=== PATIENT | female | born 1965 | race Caucasian/White ===

== ENCOUNTER 2025-02-21 10:11 | Emergency (ER) | payer OTHER ==
[~2025-02-21] VITALS: Ht 170.2 cm; Wt 58.0 kg
--- NOTE | 2025-02-21 10:39 | Physician Documentation ---
History of Present Illness ~ Chief Complaint: ALOC Stated Complaint: ALTERED Time Seen by MD: 10:24 [facility] 59-year-old female from [place] presents with ALOC complaint. According to her they have been hiking on the [place] [employer] trail since October. states that in the last three days patient has had a cough and has a stopped speaking or responding verbally. She has also had an elevated temperature over 101f according to the . She has had ongoing diarrhea. He has a attempted to provide her nourishment, but he believes has been not very substantial. In addition, the patient reportedly fell yesterday causing an abrasion on her right brow. No history of blood thinners. Patient does not take any prescribed medications. Patient had breast cancer two years ago Patient is currently following commands. Her mucous membranes are very dry. Currently requiring 3 L of oxygen to maintain a 91%. states she never reported any pain, but reported feeling tired the last week or so Day of Onset: Feb 21, 2025 Medication Reconciliation Allergies: Coded Allergies: No Known Allergies (Unverified , 02/21/25) Review of Systems All Other Systems at this time: Reviewed and Negative ROS As stated above in the HPI, otherwise all systems are reviewed and negative. Physical Exam Vital Signs: Temperature: 98.7, Source: Oral, Heart Rate: 124, Respiratory Rate: 16, BP: 105/59, Pulse Oximetry: 87 Physical Exam General: Alert, no apparent distress. HEENT: PERRL, EOMI, no injection, abrasions right brow Respiratory:diminshed right lung feild, Chest: No accessory muscle use. Cardiovascular: Regular rate and rhythm, no murmurs. Extremities: Normal range of motion, no deformity. Neurologic: Oriented x2. follows commmands , smiles appropriately Psychiatric: Normal mood and affect. Skin: Normal color, warm and dry. No edema, no ecchymosis., no petechia Procedures Procedures Central line: Patient is hypotensive and requires multiple medications therefore central line indicated. Patient was sterilely cleaned and draped and using maximum barrier protection and bedside ultrasound for guidance using modified Seldinger technique a for lumen central line catheter was placed in patient's right internal jugular. All four lines flushed. Postprocedure chest x-ray confirms placement. Line secured in place with sutures and Tegaderm and Biopatch placed. Patient tolerated procedure well without complication. Total time of procedure 20 minutes. Progress Progress Note @ 1600,Patient began to decompensate with increasing respiratory distress, saturating in the low 80s with labored respirations. I suspect this was due to the of 3 L of normal saline that she received secondary to a sepsis diagnosis. I have requested RT to place BiPAP and gave the patient a 40 of Lasix along with Solu-Medrol. She quickly turned around as she was not originally Postop BiPAP patient went up to 97% and appeared more comfortable with less distress Have requested to transfer the patient to a higher level of care as she needs both Oncology and ICU critical care. [facility] and Dr. Moscoso oncoologist and Dr Sexton brake assembler graciously accepted the patient and they are making room for her in the ICU Results/Orders Results/Orders Orders - PINKY ENRIQUEZ [employer] WARM UP Ct Head (02/21/25 11:38) Abg (Arterial Blood Gas) (02/21/25 11:09) Cta Chest Pe (02/21/25 11:41) Heparin 25,000 Unit/250ml Bag (Heparin 2 (02/21/25 12:15) Heparin 10,000 Unit/Ml 1ml (Heparin 10,0 (02/21/25 12:15) Cbc/Diff (02/22/25 03:00) Cbc/Diff (02/23/25 03:00) Cbc/Diff (02/24/25 03:00) Cbc/Diff (02/25/25 03:00) Cbc/Diff (02/26/25 03:00) Bipap/Cpap (02/21/25 ) Completed Orders - PINKY ENRIQUEZ [employer] WARM UP Ct Head (02/21/25 11:38) Lrpc - No Active Bleeding (02/21/25 10:50) PTT (02/21/25 10:57) Pt Inr (02/21/25 10:57) Normal Saline 1000ml (0.9% Sodium Chlori (02/21/25 11:00) Potassium Cl Inj (Potassium Cl Inj) (02/21/25 11:10) Electrocardiogram (02/21/25 ) Ceftriaxone 2gm/D5w 50ml Bag (Rocephin 2 (02/21/25 11:15) Cta Chest Pe (02/21/25 11:41) Type And Screen (02/21/25 11:02) Iohexol 350mg/Ml 100ml (Omnipaque 350mg/ (02/21/25 11:32) D-Dimer (02/21/25 10:23) Hs Troponin I W Calculations (02/21/25 11:39) Hs Troponin I W Calculations (02/21/25 13:39) Hs Troponin I W Calculations (02/21/25 14:39) Message To Nursing (02/21/25 12:30) Heparin 10,000 Unit/Ml 1ml (Heparin 10,0 (02/21/25 15:00) Methylprednisolone Sod Succ (Solumedrol (02/21/25 16:15) Furosemide Inj (Lasix Inj) (02/21/25 16:15) Medications Received in ER Medications (Trade) Dose Ordered Sig/Clifford Route PRN Reason Start Time Stop Time Status Last Admin Dose Admin (0.9% sodium chloride (NS) 1000ml IV soln) 1,000 ml ONCE ONCE IVB 02/21/25 11:00 02/21/25 11:01 DC 02/21/25 12:02 1,000 ML Potassium Chloride 40 meq/ Sodium Chloride 520 ml @ 130 mls/hr ONCE ONCE IV 02/21/25 11:10 02/21/25 15:09 DC 02/21/25 12:02 130 MLS/HR Ceftriaxone Sodium/Dextrose 50 ml @ 100 mls/hr NOW ONCE IV 02/21/25 11:15 02/21/25 11:44 DC 02/21/25 12:02 100 MLS/HR Heparin Sodium/ Dextrose 250 ml @ 7 mls/hr [id number] PRN IV TO MAINTAIN PTT WITHIN RANGE 02/21/25 12:15 02/21/25 15:06 7 MLS/HR Azithromycin 250 ml @ 250 mls/hr ONCE ONCE IV 02/21/25 12:20 02/21/25 13:19 DC 02/21/25 13:45 250 MLS/HR Norepinephrine Bitartrate 250 ml @ 10.875 mls/ hr Q23H IV 02/21/25 12:20 02/21/25 13:41 10.875 MLS/HR (Tessalon Perles capsule) 200 mg ONCE ONCE PO 02/21/25 14:20 02/21/25 14:21 DC 02/21/25 14:37 200 MG (heparin 10,000 unit/ml 1ml inj) 3,500 units ONCE ONCE IV 02/21/25 15:00 02/21/25 15:01 DC 02/21/25 15:05 3,500 UNITS Acetaminophen 100 ml @ 400 mls/hr ONCE ONCE IV 02/21/25 15:55 02/21/25 16:09 DC 02/21/25 16:19 400 MLS/HR (SoluMEDROL 125mg inj) 125 mg ONCE ONCE IV 02/21/25 16:15 02/21/25 16:16 DC 02/21/25 16:17 125 MG (Lasix inj) 40 mg ONCE ONCE IV 02/21/25 16:15 02/21/25 16:16 DC 02/21/25 16:18 40 MG Vital Signs 02/21/25 02/21/25 02/21/25 02/21/25 10:15 10:51 10:51 11:05 Temp 98.7 98.7 Pulse 124 113 Resp 24 B/P (MAP) 105/59 90/59 (69) Pulse Ox 87 93 93 O2 Delivery Nasal Cannula* O2 Flow Rate 2.0 2 FiO2 28 02/21/25 02/21/25 02/21/25 02/21/25 11:50 12:18 13:17 13:41 Temp 98.7 Pulse 109 108 109 Resp 25 B/P (MAP) 81/54 (63) 78/50 (59) 91/63 (72) 80/60 Pulse Ox 90 92 92 O2 Flow Rate 3.0 4.0 4.0 02/21/25 02/21/25 02/21/25 02/21/25 13:52 15:06 16:23 16:32 Temp 100.8 102.2 Pulse 118 118 119 118 Resp 27 25 B/P (MAP) 96/62 (73) 104/60 (75) 116/78 (91) Pulse Ox 93 90 92 99 O2 Flow Rate 4.0 5.0 60.0 FiO2 60 02/21/25 16:45 Temp 102.6 Pulse 119 Resp 30 B/P (MAP) 116/78 (91) Pulse Ox 94 O2 Flow Rate 60.0 Laboratory Tests Test 02/21/25 10:23 02/21/25 12:15 02/21/25 13:56 02/21/25 14:05 White Blood Count 89.7 *H Red Blood Count 2.07 L Hemoglobin 6.9 *L Hematocrit 20.7 *L Mean Corpuscular Volume 99.9 H Mean Corpuscular Hemoglobin 33.1 H Mean Corpuscular Hemoglobin Concent 33.1 Red Cell Distribution Width 20.5 H Platelet Count 24 *L Mean Platelet Volume 6.5 L Neutrophils (%) (Auto) 0.2 L Lymphocytes (%) (Auto) 96.8 H Monocytes (%) (Auto) 3.0 Eosinophils (%) (Auto) 0 Basophils (%) (Auto) 0 Neutrophils # (Auto) 0.1 L Lymphocytes # (Auto) 86.8 H Monocytes # (Auto) 2.7 H Eosinophils # (Auto) 0.0 Basophils # (Auto) 0.0 CBC Comment Differential Total Cells Counted 100 Lymphocytes % (Manual) 94.0 H Monocytes % (Manual) 5.0 Metamyelocytes % 1.0 H Nucleated Red Blood Cells 2 H Platelet Estimate Decreased Red Blood Cell Morphology Perf Hypochromasia 1+ Basophilic Stippling Anisocytosis 3+ Macrocytosis 1+ Tear Drop Cells Few Schistocytes Few Hematology Pathologist Comment See note Prothrombin Time 13.8 H INR International Normalized Ratio 1.4 Activated Partial Thromboplast Time 40 H D-Dimer 3.69 H D-Dimer Comment Coagulation Comments Sodium Level 123 L Potassium Level 2.7 *L Chloride Level 91 L Carbon Dioxide Level 19.5 L Anion Gap 13 Blood Urea Nitrogen 18 Creatinine 1.01 H Estimated GFR/1.73 m2 56 BUN/Creatinine Ratio 17.8 Glucose Level 141 H Lactic Acid Level 1.7 Calcium Level 7.2 L Troponin I High Sensitivity 612 *H 793 *H Pro-B-Type Natriuretic Peptide 6323 H Albumin 2.0 L Procalcitonin 49.21 H Chemistry Comments Blood Gas Specimen Type Arterial Blood Gas Puncture Site Rr O2 Saturation 62.0 *L Arterial Blood pH (Temp corrected) 7.445 Arterial Blood pCO2 (Temp correct) 27.9 L Arterial Blood pO2 (Temp corrected) 35.9 *L Arterial Blood PO2/FiO2 Ratio 1.12 Arterial Blood HCO3 18.7 L Arterial Blood Base Excess -4.7 L Arterial Blood Oxyhemoglobin 61.6 L Arterial Blood Carboxyhemoglobin 0.3 L Arterial Blood Methemoglobin 0.3 Arterial Blood Deoxyhemoglobin 37.8 H Hesham Test Modified Blood Gas Hemoglobin 7.4 L Blood Gas Temperature 37.0 Blood Gas Liter Flow 3 Blood Gas Modality Nasal cannula FiO2 32.0 Blood Gas Critical Value Called To dr. enriquez Troponin I High Sens Percent Delta 29 Troponin I Hi Sens Absolute Change 181 Urine Specimen Description Melchor cath Urine Color Yellow Urine Clarity Slightly cloudy Urine pH 6.0 Urine Specific [place] 1.015 Urine Protein 100 H Urine Glucose (UA) Negative Urine Ketones Negative Urine Occult Blood Large H Urine Nitrite Negative Urine Bilirubin Negative Urine Urobilinogen 0.2 Urine Leukocyte Esterase Negative Urine RBC 3-10 Urine WBC 5-10 H Urine Squamous Epithelial Cells Few Urine Renal Cells Moderate Urine Bacteria Few Urine Cellular Casts 0-4 Urine Coarse Granular Casts 3-5 Urine Culture Indicated Indicated Volume Urine Centrifuged 10 ml Urine Comment Test 02/21/25 14:56 Troponin I High Sensitivity 772 *H Troponin I High Sens Percent Delta 2 Troponin I Hi Sens Absolute Change -21 Microbiology Date/Time Source Procedure Growth Status 02/21/25 14:43 Urine Melchor Cath Urine Culture - Preliminary Culture received. Resulted 02/21/25 11:02 Blood Arm Right Blood Culture - Preliminary NEGATIVE (LESS THAN 24 HOURS) Resulted Medical Decision Making Findings This patient presented acutely hypoxic requiring 3 liters maintain adequate oxygenation. Per my interpretation of her x-ray she has right multi lobar pneumonia infiltrate. Her neurologic status is slowly improving and he is beginning to verbalize responses. Started her on Rocephin for pneumonia and am hydrating her via IV fluids. not currently infusing PRBC currently with hemoglobin of 6.9 as this can increase blood viscosity and contribute to increased risk of complications when leukemia has not been ruled out. 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 Jaime: Has been working closely with PA regarding patient's care. She presented to the emergency room altered and soon developed fevers with hypotension. After 3 L of fluids her blood pressure did not respond therefore pressors needed to be implemented. She began to get hypoxic and this is likely a combination of three different things one; possible fluid overload, two pneumonia three possible lymphoblastic crisis. We do not have oncologic services and patient needs higher level of care and we are arranging for transport. Central line placed by myself. She is requiring pressors. Patient also noted to have elevated troponins and heparin initiated. Differential Dx:Considerations: Include: Allergic rhinitis, Influenza, Otitis media, Peritonsillar abscess, Pharyngitis-Diphtheria, Pharyngitis-Streptoccal, Pharyngitis-Viral, Pneumonia, Pnuemonitis, Sinusitis, URI, Other Departure Disposition: HOME / SELF CARE / HOMELESS Impression: Primary Impression: Altered mental status Additional Impressions: Hypokalemia Anemia Leukemia Pneumonia Sepsis Referrals: NO PRIMARY CARE PROVIDER (PCP) Critical Care Note Total Time (mins): 120 Critical Care Note The very real possibility of a deterioration of this patient's condition required the highest level of my preparedness for sudden, emergent intervention. I provided critical care services, which included medication orders, frequent reevaluations of the patient's condition and response to treatment, ordering and reviewing test results, and discussing the case with various consultants. Excludes time spent performing separately billable procedures. The critical care time associated with the care of the patient was. Signature Scribe Signature: j Attestation: Scribed for Pinky Enriquez Briquette Operator by Pinky Chase NP . 02/21/25 12:29 PINKY ENRIQUEZ NP Feb 21, 2025 10:39 CAL JAIME MD Feb 21, 2025 13:25
[2025-02-21 10:40] LABS: MEAN PLATELET VOLUME 6.5 FL (7.4-10.4); RED CELL DISTRIBUTION WIDTH 20.5 % (11.5-14.5)
[2025-02-21 11:00] LABS: CREATININE 1.01 MG/DL (0.40-0.90); TOTAL CARBON DIOXIDE 19.5 MMOL/L (24-32); eGFR 56 ML/MIN
--- NOTE | 2025-02-21 11:10 | RADIOLOGY REPORT ---
EXAM: DI CHEST,SINGLE VIEW HISTORY: ALOC COMPARISON: None TECHNIQUE: Portable upright AP view of the chest was performed. FINDINGS: There are patchy and interstitial opacities throughout both lungs, most dense in the left lung base, partially obscuring the left hemidiaphragm and left heart border. No pneumothorax. The heart is enl arged. IMPRESSION: 1. Multifocal bilateral pneumonia, greatest in the left lung base. 2. Cardiomegaly.
[2025-02-21 11:16] LABS: APTT 40 SECONDS (22-32); INR 1.4 INR
--- NOTE | 2025-02-21 11:26 | ELECTROCARDIOGRAPH REPORT ---
[facility] Test Date: 2025-02-21 Test Time: 11:23:48 Pat Name: JUAN MAK Department: [facility] Patient ID: [facility]-[id number] Room: Gender: F Furniture Delivery Driver: : 1965 Requested By: PINKY VASQUEZ Order Number: [id number] Reading MD: Dr. Richie Samaniego Measurements Intervals [place] Rate: 114 P: 68 CT: 123 QRS: 22 QRSD: 89 T: 59 QT: 323 QTc: 445 Interpretive Statements Sinus tachycardia Probable left atrial enlargement Borderline low voltage, extremity leads Left ventricular hypertrophy Electronically Signed On 02-21-2025 18:20:[address] Richie Samaniego Please click the below link to view image of tracing.
[2025-02-21 11:40] LABS: LYMPHOCYTES % (MANUAL) 94.0 % (21-51); METAMYLEOCYTES% (MANUAL) 1.0 % (0-0); MONOCYTES % (MANUAL) 5.0 % (2-12); NUCLEATED RED BLOOD CELLS 2 /100WBC (0-0); PLATELET ESTIMATE DECREASED
--- NOTE | 2025-02-21 11:59 | RADIOLOGY REPORT ---
CLINICAL INFORMATION: Head injury yesterday. Head strike. TECHNIQUE: Axial imaging was obtained through the brain without contrast. Coronal and sagittal reform atted images were obtained, reviewed, and stored. Images were reviewed in brain and bone windows. Al l CT scans at this medical facility are performed using dose modulation techniques as appropriate to a performed exam including the following: Automated exposure control was utilized; adjustment of the MA and/or KV according to patient size; and use of iterative reconstruction technique. CTDIvol = 60.5 9 mGy DLP = 1079.88 mGy-cm COMPARISON: None FINDINGS: There is no acute intracranial hemorrhage. No mass effect or midline shift. Small lucency i n the left basal ganglia, possible small chronic lacunar infarct or prominent perivascular space. The ventricles and sulci are within normal limits in size for age. Basal cisterns are patent. The debbie rium is unremarkable. Paranasal sinuses and mastoid air cells are clear. IMPRESSION: 1. No CT evidence of acute intracranial abnormality. 2. Nonacute findings as described above.
[2025-02-21] MEDS: Potassium Cl inj 40 MEQ in sodium chloride 0.45% 500ml 500 ML IV ONE (12:02)
[2025-02-21] MEDS: normal saline 1000ML IV soln IVB ONE (12:02)
[2025-02-21] MEDS: CefTRIAXone 2gm/D5W 50ml BAG 50 ML IV ONE (12:02)
[2025-02-21 12:06] LABS: PRO BRAIN NATRIURETIC PEPTIDE 6323 PG/ML (0-125)
--- NOTE | 2025-02-21 12:12 | RADIOLOGY REPORT ---
CTA Chest with intravenous contrast INDICATION: PE, cancer COMPARISON: None TECHNIQUE: Multidetector spiral CTA of the chest was performed of the chest with intravenous contrast . PULMONARY ANGIOGRAPHY PROTOCOL was utilized using a bolus-tracking technique centered on the main p ulmonary artery. Axial, coronal and sagittal multiplanar and MIP reformats were performed. Radiation Dose : 1. Chest: CTDI volume is 6.3 mGy. Dose-length product is 249 mGy*cm The dose indicators for CT are the volume Computed Tomography (CT) Dose Index (CTDIvol) and the Dose Length Product (DLP), and are measured in units of mGy and mGy-cm, respectively. These indicators are not patient dose, but values generated from the CT scanner acquisition factors. The report includes radiation exposure data for exposures received during this examination. Findings: Pulmonary artery: No pulmonary embolism Lower neck: Normal thyroid. Lungs: Multifocal masslike airspace consolidation most prominent in the bilateral lower lobes. Heart/Vascular Structures: Cardiomegaly. Lymph Nodes: No adenopathy Pleura: No pleural effusion or significant pneumothorax. Musculoskeletal: No acute osseous abnormality. Soft tissues: Normal. Upper abdomen: Limited portions of the upper abdomen are unremarkable. IMPRESSION: No pulmonary embolism. Probable combination of multifocal airspace disease and/or pulmonary masses. Recommend repeat CT afte r treatment to further evaluate.
[2025-02-21] MEDS ORDERED: heparin 10,000 units/1 ML INJ IV PRN (12:15)
[2025-02-21] MEDS ORDERED: heparin 10,000 units/1 ML INJ IV ONE ×2 (12:15→12:30)
[2025-02-21 12:27] LABS: ABG BASE EXCESS -4.7 mmol/L (-2.0-3.0); ABG HCO3 18.7 mmol/L (21.0-28.0); ABG OXYGEN SATURATION 62.0 % (94.0-98.0); ABG PCO2 (T) 27.9 mmHg (32.0-45.0); ABG PH (T) 7.445 (7.350-7.450); ABG PO2 (T) 35.9 mmHg (83.0-108.0); ALLEN'S TEST Modified; FCOHb 0.3 % (0.5-1.5); FHHb 37.8 % (0.0-5.0); FIO2 32.0 mmHg/%; FLOW 3 L/min; FMetHb 0.3 % (0.0-1.5); FO2Hb 61.6 % (94.0-98.0); MODE NASAL CANNULA; PATIENT TEMPERATURE 37.0; TOTAL HEMOGLOBIN 7.4 G/dl (12.0-16.0)
[2025-02-21] MEDS: MESSAGE TO NURSING IV ONE (12:30)
[2025-02-21] MEDS: NORepinephrine 8mg/ 250ml NS 250 ML IV SCH (13:41)
[2025-02-21] MEDS: azithromycin/NS 500mg/250ml 250 ML IV ONE (13:45)
--- NOTE | 2025-02-21 13:59 | RADIOLOGY REPORT ---
CHEST RADIOGRAPH Indication: central line Technique: Single frontal view of the chest was obtained COMPARISON: DI CHEST,SINGLE VIEW on DOS: 02/21/25 FINDINGS: Lines and Tubes: Right central venous catheter in satisfactory position. Lungs: Multifocal airspace disease. Pleura: No effusion. No pneumothorax. Cardiomediastinal contours: Unremarkable Bones: Unremarkable IMPRESSION: Right central venous catheter in satisfactory position.
[2025-02-21] MEDS: COMMUNICATION ORDER 1 EA MISC MC ONE ×2 (14:28→14:29)
[2025-02-21 14:30] LABS: LEUKOCYTE ESTERASE ,URINE NEGATIVE (Neg); NITRITES, URINE NEGATIVE (Neg); OCCULT BLOOD,URINE LARGE (Neg)
[2025-02-21 14:35] LABS: UA COLLECTION TYPE FOLEY CATH
[2025-02-21 14:39] LABS: RENAL CELLS, URINE MODERATE /HPF
[2025-02-21 14:42] LABS: CELLULAR CAST 0-4 /LPF (NEGATIVE); SQUAMOUS EPITHELIAL CELL,UR FEW /LPF (FEW)
[2025-02-21] MEDS: heparin 10,000 units/1 ML INJ IV ONE (15:05)
[2025-02-21] MEDS: heparin 25,000 UNIT/250ml bag 250 ML IV PRN (15:06)
[2025-02-21] MEDS: furosemide 10 MG/1 ML 10ml inj IV ONE (16:18)
[2025-02-21] MEDS: acetaminophen 1,000mg/100ml IV 100 ML IV ONE ×2 (16:19→22:02)
[2025-02-21 16:32] VITALS: PULSE 118; RESP 25; O2SAT 99
[2025-02-21 19:19] VITALS: PULSE 113; RESP 26; O2SAT 91
[2025-02-21 23:51] VITALS: BP 101/67; PULSE 128; RESP 30; TEMP 101.8; O2SAT 94
== END 2025-02-21 23:55 | disposition home or self-care (01) ==
LOC: ER 10:11
DX: S00.211A Abrasion of right eyelid and periocular area, initial encounter (principal); A41.9 Sepsis, unspecified organism; R41.82 Altered mental status, unspecified; E87.6 Hypokalemia; D64.9 Anemia, unspecified; J18.9 Pneumonia, unspecified organism; C95.90 Leukemia, unspecified not having achieved remission; Z20.822 Contact with and (suspected) exposure to COVID-19; W18.30XA Fall on same level, unspecified, initial encounter; Y93.89 Activity, other specified; Y92.89 Other specified places as the place of occurrence of the external cause; Y99.8 Other external cause status
CPT/HCPCS: 36415; 36556; 36600; 70450; 71045; 71275; 80048; 81001; 82803; 83605; 83880; 84132; 84145; 84484; 85007; 85018; 85025; 85379; 85610; 85730; 86885; 86900; 86901; 87040; 87088; 87811; 93005; 94660; 96365; 96366; 96368; 99291; 99292; J0131; J0456; J0696; J1644; J1938; J2919; J3480; J3490; J7030; Q9967; 94760; A4615; C1751; C1758